=== PATIENT | female | born 1960 | race Caucasian/White ===

== ENCOUNTER → 2016-07-25 | Outpatient (CLI) | payer OTHER ==
--- NOTE | 2016-07-25 09:16 | REP ---
Renal ultrasound: There are no comparisons. The kidneys are normal size. The right kidney measures 10.7 by 4.8 x 5.2 cm. Left kidney measures 10.3 x 5.4 x 5.5 cm. Renal cortex is mildly hyperechoic bilaterally. There are bilateral linear echogenic foci which could be calcified atheroma in the renal vessels versus nonobstructing renal calculi. There is no hydronephrosis, cyst or mass on the right on the left. Bladder ultrasound: The bladder is incompletely distended and cannot be further evaluated. We are unable to evaluate for ureteral jets. However, there is no hydronephrosis. Impression: There are linear calcifications bilaterally, likely vascular calcified atheroma although nonobstructive renal calculi cannot be entirely discounted. Otherwise, negative bilateral renal ultrasound. Signed by [place] Goldsmith MD 07/25/2016 09:08 A
== END ==
LOC: M RAD 07:18
PROVIDERS: ATTEND Internal Medicine Nephrology
DX: N18.3 Chronic kidney disease, stage 3 (moderate) (principal); E11.22 Type 2 diabetes mellitus with diabetic chronic kidney disease; R93.429 Abnormal radiologic findings on diagnostic imaging of unspecified kidney

== ENCOUNTER → 2016-10-13 | Outpatient (REF) | payer OTHER ==
[2016-10-13 14:36] LABS: PERCENT SATURATION 12.9 % (13.2-37.4)
== END ==
LOC: M LAB REF 13:13
PROVIDERS: ATTEND Internal Medicine Nephrology
DX: D64.9 Anemia, unspecified (principal)

== ENCOUNTER → 2018-02-26 | Outpatient (CLI) | payer OTHER | LOC: M WHC 07:57 | DX: Z12.31 Encounter for screening mammogram for malignant neoplasm of breast (principal); Z78.0 Asymptomatic menopausal state; Z92.89 Personal history of other medical treatment; Z80.3 Family history of malignant neoplasm of breast | CPT/HCPCS: 77067 ==

== ENCOUNTER → 2019-04-24 | Outpatient (CLI) | payer OTHER ==
--- NOTE | 2019-04-24 09:44 | REPMRS ---
Patient History The patient states she has not had a clinical breast exam in over a year. Family history of colorectal cancer at age 83 in father, breast cancer at age 70 in paternal grandmother, colorectal cancer at age 50 or over in maternal grandfather, ovarian cancer at age 60 in maternal aunt. No Hormone Replacement Therapy Digital Woman Screen Mammo: April 24, 2019 - Exam #: [id number] Bilateral CC and MLO view(s) were taken. Technologist: Vikki Sierra, Technologist Prior study comparison: February 26, 2018, bilateral digital woman screen mammo performed at [facility]. January 2017, bilateral digital mammo screening bilat, performed at [facility]. FINDINGS: There are scattered fibroglandular densities. There has been no change in the appearance of the mammogram from the prior studies. There is a mild amount of scattered fibroglandular density which is fairly symmetric. There is no interval development of dominant mass, architectural distortion, or grouped microcalcification suggestive of malignancy. 3-D tomosynthesis shows no additional findings. Assessment: BI-RADS/ACR category 1 mammogram. Negative Mammogram. Recommendation Routine screening mammogram of both breasts in 1 year (for women over age 40). This patient's Lifetime Breast Cancer Risk is estimated at 15.3 %. This mammogram was interpreted with the aid of an FDA-approved computer-aided dectection system. Electronically Signed By: Paul Vasquez MD 04/24/19 0944
== END ==
LOC: M WHC 07:13
PROVIDERS: ATTEND Internal Medicine
DX: Z12.31 Encounter for screening mammogram for malignant neoplasm of breast (principal)

== ENCOUNTER → 2019-06-25 | Outpatient (REF) | payer OTHER ==
[2019-06-26 12:37] LABS: MAU/CREAT RATIO 136.5 MCG/MG (0.0-30.0)
== END ==
LOC: M LAB REF 11:28
PROVIDERS: ATTEND Nurse Practitioner Family
DX: E11.65 Type 2 diabetes mellitus with hyperglycemia (principal)

== ENCOUNTER → 2021-01-20 | Outpatient (REF) | payer OTHER | LOC: M LAB REF 17:21 | PROVIDERS: ATTEND Internal Medicine Nephrology | DX: N18.31 Chronic kidney disease, stage 3a (principal) ==

== ENCOUNTER → 2021-03-28 | Outpatient (CLI) | payer OTHER ==
[~2021-03-28] MED LIST: BYDU2INJ7; CALC1TAB PO; ECOT81TA5 PO; FARX1TAB3; FENO160T10; HUMA100I5; LOSA100T50 PO; METF500T13; ROSU20TA5; SERT50TA29; TOUJ300I2; VITA400T26 PO
== END ==
LOC: M LABSMTC 11:05
PROVIDERS: ATTEND Anesthesiology
DX: Z01.818 Encounter for other preprocedural examination (principal); Z11.52 Encounter for screening for COVID-19

== ENCOUNTER 2021-04-01 07:41 | Day surgery (SDC) | payer OTHER ==
[~2021-04-01] VITALS: Ht 162.6 cm; Wt 99.7 kg
[~2021-04-01 07:41] MED LIST changes: +NS 1,000 ML IV ONE
--- OUTSIDE RECORDS SUMMARY | 2021-04-01 07:47 | CCD | Continuity of Care Document ---
Author Author Ayana MUNOZ M.D. Organization Unknown Address [address] [address] Phone [phone] Care Team Providers Care Airplane Rental Clerk Name Role Phone Filippo Kumar M.D. AUTM [phone] Aretha Pritchard M.D. AUTM [phone] Problems Active Problems Provider Date Type 2 diabetes mellitus Ricco Pritchard D.O., FAAFP Onset: 03/24/2002 Benign essential hypertension Tonya Pardo, RPA Onset: 03/24/2002 Mixed hyperlipidemia Tonya Pardo RPA Onset: 2 Obesity Luis Angel Miguel M.D. Onset: 03/02/2005 Hyperlipidemia Jennifer Moise, SOFTWARE DESIGNER-C Onset: Social History Type Date Description Comments Sex Unknown ETOH Use alcohol use: never used Tobacco Use Start: Unknown Patient has never smoked Recreational Drug Use Denies Drug Use Allergies and adverse reactions Active Allergies Criticality Reaction | Severity Comments Date Sulfa Drugs Unable to assess criticality 02/17/2002 Amoxicillin Unable to assess criticality rash, swelling 01/19/2011 Medications Active Medications SIG Qnty Indications Ordering Provide r Date Freestyle Lancets Misc 25g use as directed to test glucose 3-4 times a day (e 11.65) 350units Chan Munoz M.D. 10/06/2020 Freestyle Insulinx Test Strips Test Blood Sugar Three To Four Times A Day 400units Chan Munoz M.D. 05/27/2020 Shingrix 50mcg/0.5ML Suspension Re c as directed 1units Chan Munoz M.D. 01/23/20 20 Rosuvastatin Calcium 20mg Tablets 1 by mouth every day 90tabs Chan Munoz M.D. 03/10/20 19 Zoloft 50mg Tablets 1 by mouth every day 90tabs Chan Munoz M.D. 08/26/2013 BD Pen Needle/Mini/Ultrafine/31G X 3/16" 31G X 5 mm Misc for use three times a day with humalog pen and victoza dx: e 11.65 300units Chan Munoz M.D. 11/07/19 13 Asa 81mg Take One Tablet Dary Sundeep Miguel. MVic 01/04/2004 Calcium 500 +D3 [id number] Tab lets 1 po bid Unknown Vitamin E 400Unit Capsules 1 by mouth every day Unknown Fenofibrate 160mg Tablets 1 by mouth every day 90tabs Chan Munoz M.D. 00 Metformin HCL 500mg Tablets Take One Tablet By Mouth Twice A Day Maximum Daily Dose = 2 Tablets 180tabs Chan Munoz M.D. Losartan Potassium 100mg Tablets take half tab every day Unknown Humalog 100Unit/ML Solution 10 units morning, 12 units noon and 16 units eveing Aretha Pritchard M.D. [place] Solostar 300U nit/ML Solution Pen-Inject inject 80 units subcutaneously qd Brandy Pritchard M.D. Bydureon Bcise 2mg/0.85ML Auij inj every week Aretha Pritchard M.D. Farxiga 10mg Tablets 1 by mouth every day Aretha Pritchard M.D. Medications Administered in Office Medication SIG Qnty Indications Ordering Provider Date Injection (SC)/(Im) Injection Yi Anderson D.O. 04/07/2010 Injection (SC)/(Im) Injection Luis Angel Miguel M.D. 03/02/2005 Injection (SC)/(Im) Injection Luis Angel Miguel M.D. 04/14/2004 Immunizations CPT Code Status Date Vaccine Lot # [id number] Given 01/23/2020 Influenza Virus Vaccine, Quadrivalent, Slit Virus, Im Use 3Y & Up [id number] 40071 Given 02/04/2014 Influenza Virus Vac. Split Virus Individuals 3 Years And Above [id number] 74543 Given 01/29/2012 Pneumococcal Immunization [id number] 85942 Given 01/25/2011 Influenza Virus Vac. Split Virus Individuals 3 Years And Above [id number] 93412 Given 03/07/2007 Influenza Virus Vac. Split Virus Individuals 3 Years And Above 03837 Given 03/07/2006 Influenza Virus Vac. Split Virus Individuals 3 Years And Above 77584 Given 03/02/2005 Influenza Virus Vac. Split Virus Individuals 3 Years And Above 83972 Given 04/14/2004 Influenza Virus Vac. Split Virus Individuals 3 Years And Above 78912 Given 03/02/2003 Pneumococcal Immunization [id number] Refused 03/10/2019 Influenza Virus Vaccine, Quadrivalent, Slit Virus, Im Use 3Y & Up [id number] Refused 02/27/2017 Influenza Virus Vaccine, Quadrivalent, Slit Virus, Im Use 3Y & Up Vital Signs Date Vital Result Comment 11/16/2020 1:21pm BP Systolic 120 mmHg BP Diastolic 76 mmHg Body Temperature 97.3 F Heart Rate 78 /min Respiratory Rate 16 /min Height 64 inches 5'4" Weight 220.00 lb [place] Body Weight 120 lb BMI (Body Mass Index) 37.8 kg/m2 O2 % BldC Oximetry 98 % 07/26/2020 10:50am BP Systolic 128 mmHg BP Diastolic 72 mmHg Body Temperature 97.2 F Heart Rate 104 /min Respiratory Rate 16 /min Height 64 inches 5'4" Weight 219.00 lb [place] Body Weight 120 lb BMI (Body Mass Index) 37.6 kg/m2 O2 % BldC Oximetry 98 % Results Test Acquired Date Facility Test Result H/L Range Note Coronavirus 2019 Nasopharygeal 03/28/2021 [facility] (Interface) [phone] Coronavirus 2019 Nasopharygeal ASSAY INFORMATIO <SEE N OTE> 1 Laboratory test finding 11/09/2020 [facility] Hemoglobin A1c 6.8 % High 4.50-6.20 CBC 11/09/2020 [facility] WBC 7.3 10E3/uL 4.1 - 10.9 2 RBC 5.27 10E6/uL 4.20 - 6.30 HGB 14.7 g/dL 12.0 - 18.0 HCT 42.8 % 37.0 - 51.0 MCV 81.2 fL 80.0 - 97.0 MCH 27.9 pg 26.0 - 32.0 MCHC 34.3 g/dL 31.0 - 36.0 PLT 121 10E3/uL Low 140 - 440 RDW-CV 13.4 % 11.5 - 14.5 Lym% 6.8 % Low 10.0 - 58.5 Neut% 84.8 % 37.0 - 92.0 MXD% 8.4 % 0.1 - 24.0 Lym# 0.5 10E3/uL Low 0.6 - 4.1 Neut# 6.2 % 2.0 - 7.8 MXD# 0.6 10E3/uL 0.0 - 1.8 MPV 10.2 fL 9.0 - 13.0 CMP 11/09/2020 [facility] Glu 131 mg/dL High 70 - 110 BUN 17 mg/dL 8 - 23 Creat 1.1 mg/dL High 0.5 - 1.0 BUN/Creatinine Ratio 16.3 CALC Na 137 mmol/L 136 - 145 K 4.3 mmol/L 3.5 - 5.1 CL 105.2 mmol/L 98.0 - 107.0 Co2 23.5 mmol/L 22.0 - 29.0 CA 8.6 mg/dL 8.6 - 10.2 TP 6.0 g/dL Low 6.6 - 8.7 Alb 4.2 g/dL 3.4 - 4.8 A/G Ratio 2.3 CALC Globulin 1.8 CALC Alp 62.3 U/L 35 - 129 Alt (SGPT) 14 U/L 0 - 41 Ast (Sgot) 18 U/L 0 - 40 Tbili 0.41 mg/dL 0.0 - 1.2 Osmolality-Calculated 276.4 CALC Anion Gap 12 mmol/L eGFR 63 # Calc 3 eGFR Non-Afr. Jamaican 55 # Calc 4 Lipid Panel 11/09/2020 [facility] Chol 139 mg/dL 0 - 200 Trig 162 mg/dL 40 - 200 HDL 32 mg/dL Low 45 - 65 LDL_C 75 Calc 75 - 129 Cho/HDL Ratio 4.4 CALC 1 ASSAY INFORMATION: Real Time RT-PCR NOTE: The COVID-19 assay has been cleared by the U.S. Food and Drug Administration under the Emergency Use Authorization (EUA). [facility] and [facility] are designated as high complexity laboratories by the Clinical Laboratory Improvement Amendments of 1988(CLIA) and are qualified to perform this test. Not Detected 2 NORMAL RANGES Age WBC RBC HGB HCT MCV PLT Adult M 4.1-10.9 4.20-6.30 12.0-18.0 37.0-51.0 80-97 140-440 Adult F 4.1-10.9 4.04-5.48 12.0-18.0 37.0-51.0 80-97 140-440 0 -1 Yr 5.0-20.0 3.9-5.9 15-18 MV: 44 MV: 91 MV: 277 2-9 Yr. 6.0-17.0 3.8-5.4 11-13 MV: 37 MV: 78 MV: 300 10 Yrs. 5.0-13.0 3.8-5.4 12-15 MV: 39 MV: 80 MV: 250 NOTE: * FOR ADULT BLACK MALES AND FEMALES, NORMAL WBC IS 2.9-7.7 K/ML * FOR ADULT BLACK MALES AND FEMALES, NORMAL RBC,HGB, AND HCT IS 5% LESS SOURCE FOR DATA: 10-20 Media 1800 OPERATION MANUAL( AUTOMATED BLOOD COUNTS AND DIFF.) APPENDIX B-3 CHRONIC KIDNEY DISEASE STAGING PER NKF: MALE GFR INTERPRETATION: 20-49 YRS: >60 mL/min Normal 50-59 YRS: >56 mL/min Normal 60-69 YRS: >49 mL/min Normal 70-79 YRS: >42 mL/min Normal 80 and above >35 mL/min Normal FEMALE GRF INTERPRETATION: 20-39 YRS: >60 mL/min Normal 40-49 YRS: >58 mL/min Normal 50-59 YRS: >51 mL/min Normal 60-69 YRS: >45 mL/min Normal 70-79 YRS: >39 mL/min Normal 80 and above >32 mL/min NormalCLASSIFICATION CHOLESTEROL FOR ADULTS CHILDREN/ADOLESCENTS* DESIRABLE: <200 MG/DL <170 MG/DL BORDER-LINE HIGH RISK: 200-239 MG/DL 170-199 MG/DL HIGH RISK: >240 MG/DL >200 MG/DL CLASS. FOR PRIMARY LDL CHOL PREVENTION: LDL CHOL-CHILD/ADOLESCENTS* DESIRABLE: <130 MG/DL <110 MG/DL BORDERLINE-HIGH RISK: 130-159 MG/DL 110-129 MG/DL HIGH RISK: >160 MG/DL >130 MG/DL *CHILDREN AND ADOLESCENTS REPRESENTS INDIVIDUALA AGED 2-19 YEARS EXCLUSIVE. 3 CKD-EPI 4 CKD-EPI Procedures Date Code Description Status 11/16/2020 34398 Office/Outpatient Established Mo d MDM 30-39 Min Completed 04/24/2019 [id number] Mammogram Completed 02/26/2018 [id number] Mammogram Completed 08/30/2015 [id number] Mammogram Completed Medical Devices Description No Information Available Encounters Type Date Location Provider Dx Diagnosis Office Visit 11/16/2020 11:00a [facility] Chan Munoz M. D. E11.65 Type 2 diabetes mellitus with hyperglycemia E78.5 Hyperlipidemia, unspecified I10 Essential (primary) hyperten nova N18.30 Chronic kidney disease, stag e 3 unspecified Assessments Date Code Description Provider 11/16/2020 E11.65 Type 2 diabetes mellitus with hy perglycemia Chan Munoz M.D. 11/16/2020 E78.5 Hyperlipidemia, unspecified Mitc helChan tello M.D. 11/16/2020 I10 Essential (primary) hypertension Chan Munoz M.D. 11/16/2020 N18.30 Chronic kidney disease, stage 3 unspecified Chan Munoz M.D. 11/09/2020 E11.65 Type 2 diabetes mellitus with hy perglycemia Ricco Pritchard D.O., [facility] 11/09/2020 E11.65 Type 2 diabetes mellitus with hy perglycemia Laboratory [facility] 11/09/2020 E78.5 Hyperlipidemia, unspecified Gideon Pritchard D.O., [facility] 11/09/2020 E78.5 Hyperlipidemia, unspecified Labo ratory [facility] Plan of Treatment Future Appointment(s):* 05/13/2021 9:00 am - [facility] * 05/20/2021 10:00 am - Chan Munoz M.D. at [facility] 11/23/2008 - Luis Angel Miguel M.D.* 786.50 Pain Chest Unspecified* Follow up:* In 3 months. * 780.50 Sleep Disturbance Unspecified * 250.00 Diabetes Mellitus Adult* Comments:* Discussed blood glucose monitering. Recommend fasting checks 3-5/week and 2 hr pp 1-2/week. Reviewed dietary compliance. * 401.1 Hypertension Benign* Comments:* Reviewed lo salt diet, exercise, and weight loss. Discussed home BP monitering, goal BP < 135/ < 85. * 272.2 Hyperlipidemia Mixed * All * Follow up:* In 3 months, For Routine Health Maintanence. Functional Status Description No Information Available Mental Status Description No Information Available Referrals Description No Information Available
--- OUTSIDE RECORDS SUMMARY | 2021-04-01 07:48 | CCD | Continuity of Care Document ---
Author Author Ayana OLMOS NP Organization Unknown Address [address] [place] [address] Phone [phone] Care Team Providers Care Csr Technician Name Role Phone Chan Munoz MD AUTM [phone] Funmi Hair MD AUTM [phone] Problems Active Problems Provider Date Pure hypercholesterolemia Kim Olmos NP Onset: 02/22 Essential hypertension Kim Olmos NP Onset: 019 Social History Type Date Description Comments Sex Unknown Tobacco Use Start: Unknown Never Smoked Cigarettes Smoking Status Reviewed: 01/20/21 Never Smoked Cigarettes ETOH Use Never used alcohol Allergies and adverse reactions Active Allergies Criticality Reaction | Severity Comments Date sulfa drugs Unable to assess criticality 03/13/2019 Amoxicillin Unable to assess criticality 03/13/2019 Medications Active Medications SIG Qnty Indications Ordering Provide r Date Farxiga 10mg Tablets 1 by mouth every day 90tabs E11.65 Kim Olmos NP 11/04/2019 Pen [place] 31G X 5 mm Misc use as directed 4 times a day 400units E11.65 Aretha Pritchard MD 11/03 N18.3 Bydureon Bcise 2mg/0.85ML Auij use as directed weekly 10.2ml E11.65 Aretha Pritchard MD 04/30/2019 Toujeo Max Solostar 300Unit/ML Solution Pen-Inject 70 units every morning 27units E11.65 Kim Olmos NP 03/14/2019 Humalog Kwikpen 100U nit/ML Solution Pen-Inject use as directed three times daily- 10--12--16 units 60units E11.65 Kim Olmos NP 03/13/2019 Sertraline HCL 50mg Tablets 1 po qd Unknown Calcium 600+D3 [id number] Tabl ets 1 po qd Unknown Vitamin E 400Unit Capsules 1 po qd Unknown Losartan Potassium 50mg Tablets 1 po qd Unknown Aspirin [address] 1 po qd Unknown Fenofibrate 160mg Tablets 1 p o qd Unknown Rosuvastatin Calcium 20mg Tablets 1 po qd Unknown Metformin HCL 500mg Tablets 1 by mouth twice a day 180tabs Kim Olmos NP 0 Immunizations Description No Information Available Vital Signs Date Vital Result Comment 01/20/2021 1:10pm BP Systolic 142 mmHg BP Diastolic 80 mmHg Heart Rate 72 /min Height 63.9 inches 5'3.90" Weight 218.12 lb BMI (Body Mass Index) 37.6 kg/m2 07/22/2020 8:58am BP Systolic 140 mmHg BP Diastolic 78 mmHg Heart Rate 84 /min Body Temperature 95.9 F Height 63.9 inches 5'3.90" Weight 218.00 lb BMI (Body Mass Index) 37.5 kg/m2 O2 % BldC Oximetry 98 % Results Description No Information Available Procedures Date Code Description Status 01/20/2021 29863 Office/Outpatient Established Mo d MDM 30-39 Min Completed 07/22/2020 [id number] Diabetic Foot Exam Completed Medical Devices Description No Information Available Encounters Type Date Location Provider Dx Diagnosis Office Visit 01/20/2021 1:15p DR. Aretha Olmos, N P E11.65 Type 2 diabetes mellitus with hyperglycemia E78.00 Pure hypercholesterolemia, u nspecified I10 Essential (primary) hyperten nova N18.30 Chronic kidney disease, stag e 3 unspecified Assessments Date Code Description Provider 01/20/2021 E11.65 Type 2 diabetes mellitus with hy perglycemia Kim Olmos NP 01/20/2021 E78.00 Pure hypercholesterolemia, unspe cified Kim Olmos NP 01/20/2021 I10 Essential (primary) hypertension Kim Olmos NP 01/20/2021 N18.30 Chronic kidney disease, stage 3 unspecified Kim Olmos NP Plan of Treatment Future Appointment(s):* 07/26/2021 10:30 am - Kim Olmos NP at DR. Aretha Pritchard 01/20/2021 - Kim Olmos NP* E11.65 Type 2 diabetes mellitus with hyperglycemia* Comments:* 11/09/20- out of office A1c = 6.8% (6.5 %, 5.7%, 7.8%, 8% 8.8%, 8.8%, 8.9%, 8.6%, 8%, 8.8%) Meter downloaded- fasting- 110- 198, Dinner- 59-142 Has lost 0 lbs since last visit- joined Weight WatchersCurrent medication: Metformin 500 mg BID, Bydureon 2 mg, Toujeo max- 70 units qam, Humalog 10-12-16 units- 15 mins before meals, Farxiga 10 mg daily. (Tried Invokana- stopped due to acute renal failure. We do not have the records of when this was started and how high her creatinine conor. She verbally reports that things have normalized. )Has been able to further decrease ToujeoWill continue same. RTO 6 months * Follow up:* RTO July JL/CBF * E78.00 Pure hypercholesterolemia, unspecified* Comments:* Goal for LDL <100. On Fenofibrate and CrestorLabs done 04/30/20- chol= 129, Trig= 170, HDL= 32, LDL= 63 Labs done 11/09/20- chol= 139, Trig= 162, HDL= 32, LDL= 75AST/ALT= 18/14 * I10 Essential (primary) hypertension* Comments:* On ARB. BP 142/80On Losartan 50mg po qd. * N18.30 Chronic kidney disease, stage 3 unspecified* Comments:* Seen by Dr. Hair 01/20/21. Per pt, ok to continue Farxiga. Functional Status Description No Information Available Mental Status Description No Information Available Referrals Description No Information Available
--- OUTSIDE RECORDS SUMMARY | 2021-04-01 07:48 | CCD | Continuity of Care Document ---
Author Author Ayana OLMOS NP Organization Unknown Address [address] [place] [address] Phone [phone] Care Team Providers Care Cmv Driver Name Role Phone Chan Munoz MD AUTM [phone] Funmi Hair MD AUTM [phone] Problems Active Problems Provider Date Pure hypercholesterolemia Kim Olmos NP Onset: 02/22 Essential hypertension Kim Olmos NP Onset: 019 Social History Type Date Description Comments Sex Unknown Tobacco Use Start: Unknown Never Smoked Cigarettes Smoking Status Reviewed: 01/20/21 Never Smoked Cigarettes ETOH Use Never used alcohol Allergies, Adverse Reactions, Alerts Active Allergies Criticality Reaction | Severity Comments Date sulfa drugs Unable to assess criticality 03/13/2019 Amoxicillin Unable to assess criticality 03/13/2019 Medications Active Medications SIG Qnty Indications Ordering Provide r Date Farxiga 10mg Tablets 1 by mouth every day 90tabs E11.65 Kim Olmos NP 11/04/2019 Pen [place] 31G X 5 mm Misc use as [...] times daily- 10--12--16 units 60units E11.65 Kim Olmos, JESS 03/13/2019 Sertraline HCL 50mg Tablets 1 po qd Unknown Calcium 600+D3 [id number] Tabl ets 1 po qd Unknown Vitamin E 400Unit Capsules 1 po qd Unknown Losartan Potassium 50mg Tablets 1 po qd Unknown Aspirin [address] 1 po qd Unknown Fenofibrate 160mg Tablets 1 p o qd Unknown Rosuvastatin Calcium 20mg Tablets 1 po qd Unknown Metformin HCL 500mg Tablets 1 by mouth twice a day 180tabs Kim Olmos, JESS 0 Immunizations Description No Information Available Vital [...] Date Facility Test Result H/L Range Note Laboratory test finding 07/22/2020 In House Glucose 173 Hemoglobin A1c 6.5 Procedures Date Code Description Status 01/20/2021 69084 Office/Outpatient Established Mo d MDM 30-39 Min Completed 07/22/2020 08658 Office/Outpatient Established Mo d MDM 30-39 Min Completed 07/22/2020 [id number] Diabetic Foot Exam Completed Medical Devices Description No Information Available Encounters Type Date Location Provider Dx Diagnosis Office Visit 01/20/2021 1:15p DR. Aretha Olmos, N P E11.65 Type 2 diabetes mellitus with hyperglycemia E78.00 Pure hypercholesterolemia, u nspecified I10 Essential (primary) hyperten nova N18.30 Chronic kidney disease, stag e 3 unspecified Office Visit 07/22/2020 9:00a DR. Aretha Olmos, N P E11.65 Type 2 diabetes mellitus with hyperglycemia E78.00 Pure hypercholesterolemia, u nspecified I10 Essential (primary) hyperten nova N18.30 Chronic kidney disease, stag e 3 unspecified Z01.89 Encounter for other specifie d special examinations Assessments Date Code Description Provider 01/20/2021 E11.65 Type 2 diabetes mellitus with hy perglycemia Kim Olmos, CABLE SYSTEMS INSTALLER 01/20/2021 E78.00 Pure hypercholesterolemia, unspe cified Kim Olmos, CABLE SYSTEMS INSTALLER 01/20/2021 I10 Essential (primary) hypertension Kim Olmos, CABLE SYSTEMS INSTALLER 01/20/2021 N18.30 Chronic kidney disease, stage 3 unspecified Kim Olmos, CABLE SYSTEMS INSTALLER 07/22/2020 E11.65 Type 2 diabetes mellitus with hy perglycemia Kim Olmos, CABLE SYSTEMS INSTALLER 07/22/2020 E78.00 Pure hypercholesterolemia, unspe cified Kim Olmos, CABLE SYSTEMS INSTALLER 07/22/2020 I10 Essential (primary) hypertension Kim Olmos, CABLE SYSTEMS INSTALLER 07/22/2020 N18.30 Chronic kidney disease, stage 3 unspecified Kim Olmos, CABLE SYSTEMS INSTALLER 07/22/2020 Z01.89 Encounter for other specified sp ecial examinations Kim Olmos NP Plan of Treatment Future [...]
--- OUTSIDE RECORDS SUMMARY | 2021-04-01 07:48 | CCD ---
Author Author [facility] Organization [facility] Address Unknown Phone Unavailable Care Team Providers Care Arboriculture Teacher Name Role Phone NICKOLAS, B TONIA TWINE REELING MACHINE OPERATOR Unavailable Unavailable NICKOLAS, B TONIA TWINE REELING MACHINE OPERATOR Unavailable Unavailable NICKOLAS, B TONIA TWINE REELING MACHINE OPERATOR Unavailable Unavailable NICKOLAS, B TONIA TWINE REELING MACHINE OPERATOR Unavailable Unavailable NICKOLAS, B TONIA TWINE REELING MACHINE OPERATOR Unavailable Unavailable NICKOLAS, B TONIA TWINE REELING MACHINE OPERATOR Unavailable Unavailable NICKOLAS, B TONIA TWINE REELING MACHINE OPERATOR Unavailable Unavailable NICKOLAS, B TONIA TWINE REELING MACHINE OPERATOR Unavailable Unavailable NICKOLAS, B TONIA TWINE REELING MACHINE OPERATOR Unavailable Unavailable NICKOLAS, B TONIA TWINE REELING MACHINE OPERATOR Unavailable Unavailable NICKOLAS, B TONIA TWINE REELING MACHINE OPERATOR Unavailable Unavailable NICKOLAS, B TONIA TWINE REELING MACHINE OPERATOR Unavailable Unavailable NICKOLAS, B TONIA TWINE REELING MACHINE OPERATOR Unavailable Unavailable NICKOLAS, B TONIA TWINE REELING MACHINE OPERATOR Unavailable Unavailable NICKOLAS, B TONIA TWINE REELING MACHINE OPERATOR Unavailable Unavailable NICKOLAS, B TONIA TWINE REELING MACHINE OPERATOR Unavailable Unavailable NICKOLAS, B TONIA TWINE REELING MACHINE OPERATOR Unavailable Unavailable NICKOLAS, B TONIA TWINE REELING MACHINE OPERATOR Unavailable Unavailable NICKOLAS, B TONIA TWINE REELING MACHINE OPERATOR Unavailable Unavailable NICKOLAS, B TONIA TWINE REELING MACHINE OPERATOR Unavailable Unavailable NICKOLAS, B TONIA TWINE REELING MACHINE OPERATOR Unavailable Unavailable NICKOLAS, B TONIA TWINE REELING MACHINE OPERATOR Unavailable Unavailable NICKOLAS, B TONIA TWINE REELING MACHINE OPERATOR Unavailable Unavailable NICKOLAS, B TONIA TWINE REELING MACHINE OPERATOR Unavailable Unavailable NICKOLAS, B TONIA TWINE REELING MACHINE OPERATOR Unavailable Unavailable NICKOLAS, B TONIA TWINE REELING MACHINE OPERATOR Unavailable Unavailable NICKOLAS, B TONIA TWINE REELING MACHINE OPERATOR Unavailable Unavailable NICKOLAS, B TONIA TWINE REELING MACHINE OPERATOR Unavailable Unavailable NICKOLAS, B TONIA TWINE REELING MACHINE OPERATOR Unavailable Unavailable NICKOLAS, B TONIA TWINE REELING MACHINE OPERATOR Unavailable Unavailable NICKOLAS, B TONIA TWINE REELING MACHINE OPERATOR Unavailable Unavailable NICKOLAS, B TONIA TWINE REELING MACHINE OPERATOR Unavailable Unavailable NICKOLAS, B TONIA TWINE REELING MACHINE OPERATOR Unavailable Unavailable NICKOLAS, B TONIA TWINE REELING MACHINE OPERATOR Unavailable Unavailable NICKOLAS, B TONIA TWINE REELING MACHINE OPERATOR Unavailable Unavailable NICKOLAS, B TONIA TWINE REELING MACHINE OPERATOR Unavailable Unavailable NICKOLAS, B TONIA TWINE REELING MACHINE OPERATOR Unavailable Unavailable NICKOLAS, B TONIA TWINE REELING MACHINE OPERATOR Unavailable Unavailable NICKOLAS, B TONIA TWINE REELING MACHINE OPERATOR Unavailable Unavailable NICKOLAS, B TONIA TWINE REELING MACHINE OPERATOR Unavailable Unavailable NICKOLAS, B TONIA TWINE REELING MACHINE OPERATOR Unavailable Unavailable NICKOLAS, B TONIA TWINE REELING MACHINE OPERATOR Unavailable Unavailable NICKOLAS, B TONIA TWINE REELING MACHINE OPERATOR Unavailable Unavailable NICKOLAS, B TONIA TWINE REELING MACHINE OPERATOR Unavailable Unavailable NICKOLAS, B TONIA TWINE REELING MACHINE OPERATOR Unavailable Unavailable NICKOLAS, B TONIA TWINE REELING MACHINE OPERATOR Unavailable Unavailable NICKOLAS, B TONIA TWINE REELING MACHINE OPERATOR Unavailable Unavailable NICKOLAS, B TONIA TWINE REELING MACHINE OPERATOR Unavailable Unavailable NICKOLAS, B TONIA TWINE REELING MACHINE OPERATOR Unavailable Unavailable NICKOLAS, B TONIA TWINE REELING MACHINE OPERATOR Unavailable Unavailable NICKOLAS, B TONIA TWINE REELING MACHINE OPERATOR Unavailable Unavailable NICKOLAS, B TONIA TWINE REELING MACHINE OPERATOR Unavailable Unavailable NICKOLAS, B TONIA TWINE REELING MACHINE OPERATOR Unavailable Unavailable NICKOLAS, B TONIA TWINE REELING MACHINE OPERATOR Unavailable Unavailable NICKOLAS, B TONIA TWINE REELING MACHINE OPERATOR Unavailable Unavailable NICKOLAS, B TONIA TWINE REELING MACHINE OPERATOR Unavailable Unavailable NICKOLAS, B TONIA TWINE REELING MACHINE OPERATOR Unavailable Unavailable NICKOLAS, B TONIA TWINE REELING MACHINE OPERATOR Unavailable Unavailable NICKOLAS, B TONIA TWINE REELING MACHINE OPERATOR Unavailable Unavailable NICKOLAS, B TONIA TWINE REELING MACHINE OPERATOR Unavailable Unavailable NICKOLAS, B TONIA TWINE REELING MACHINE OPERATOR Unavailable Unavailable NICKOLAS, B TONIA TWINE REELING MACHINE OPERATOR Unavailable Unavailable Sammy NEWMAN MD Unavailable Unavailable Sammy NEWMAN MD Unavailable Unavailable Sammy NEWMAN MD Unavailable Unavailable Sammy NEWMAN MD Unavailable Unavailable Sammy NEWMAN MD Unavailable Unavailable Sammy NEWMAN MD Unavailable Unavailable Sammy NEWMAN MD Unavailable Unavailable Sammy NEWMAN MD Unavailable Unavailable Sammy NEWMAN MD Unavailable Unavailable Sammy NEWMAN MD Unavailable Unavailable Sammy NEWMAN MD Unavailable Unavailable Sammy NEWMAN MD Unavailable Unavailable Sammy NEWMAN MD Unavailable Unavailable Sammy NEWMAN MD Unavailable Unavailable Sammy NEWMAN MD Unavailable Unavailable Sammy NEWMAN MD Unavailable Unavailable Sammy NEWMAN MD Unavailable Unavailable Sammy NEWMAN MD Unavailable Unavailable Sammy NEWMAN MD Unavailable Unavailable TRENT, H PHILLIP MD Unavailable Unavailable TRENT, H PHILLIP MD Unavailable Unavailable TRENT, H PHILLIP MD Unavailable Unavailable TRENT, H PHILLIP MD Unavailable Unavailable TRENT, H PHILLIP MD Unavailable Unavailable TRENT, H PHILLIP MD Unavailable Unavailable TRENT, H PHILLIP MD Unavailable Unavailable TRENT, H PHILLIP MD Unavailable Unavailable TRENT, H PHILLIP MD Unavailable Unavailable TRENT, H PHILLIP MD Unavailable Unavailable TRENT, H PHILLIP MD Unavailable Unavailable TRENT, H PHILLIP MD Unavailable Unavailable TRENT, H PHILLIP MD Unavailable Unavailable TRENT, H PHILLIP MD Unavailable Unavailable TRENT, H PHILLIP MD Unavailable Unavailable TRENT, H PHILLIP MD Unavailable Unavailable TRENT, H PHILLIP MD Unavailable Unavailable TRENT, H PHILLIP MD Unavailable Unavailable TRENT, H PHILLIP MD Unavailable Unavailable TRENT, H PHILLIP MD Unavailable Unavailable TRENT, H PHILLIP MD Unavailable Unavailable TRENT, H PHILLIP MD Unavailable Unavailable TRENT, H PHILLIP MD Unavailable Unavailable TRENT, H PHILLIP MD Unavailable Unavailable TRENT, H PHILLIP MD Unavailable Unavailable TRENT, H PHILLIP MD Unavailable Unavailable TRENT, H PHILLIP MD Unavailable Unavailable TRENT, H PHILLIP MD Unavailable Unavailable TRENT, H PHILLIP MD Unavailable Unavailable TRENT, H PHILLIP MD Unavailable Unavailable TRENT, H PHILLIP MD Unavailable Unavailable TRENT, H PHILLIP MD Unavailable Unavailable TRENT, H PHILLIP MD Unavailable Unavailable TRENT, H PHILLIP MD Unavailable Unavailable TRENT, H PHILLIP MD Unavailable Unavailable TRENT, H PHILLIP MD Unavailable Unavailable TRENT, H PHILLIP MD Unavailable Unavailable TRENT, H PHILLIP MD Unavailable Unavailable TRENT, H PHILLIP MD Unavailable Unavailable TRENT, H PHILLIP MD Unavailable Unavailable TRENT, H PHILLIP MD Unavailable Unavailable TRENT, H PHILLIP MD Unavailable Unavailable TRENT, H PHILLIP MD Unavailable Unavailable TRENT, H PHILLIP MD Unavailable Unavailable TRENT, H PHILLIP MD Unavailable Unavailable TRENT, H PHILLIP MD Unavailable Unavailable TRENT, H PHILLIP MD Unavailable Unavailable TRENT, H PHILLIP MD Unavailable Unavailable TRENT, H PHILLIP MD Unavailable Unavailable TRENT, H PHILLIP MD Unavailable Unavailable TRENT, H PHILLIP MD Unavailable Unavailable TRENT, H PHILLIP MD Unavailable Unavailable TRENT, H PHILLIP MD Unavailable Unavailable TRENT, H PHILLIP MD Unavailable Unavailable TRENT, H PHILLIP MD Unavailable Unavailable TRENT, H PHILLIP MD Unavailable Unavailable TRENT, H PHILLIP MD Unavailable Unavailable TRENT, H PHILLIP MD Unavailable Unavailable TRENT, H PHILLIP MD Unavailable Unavailable TRENT, H PHILLIP MD Unavailable Unavailable Re-disclosure Warning The records that you are about to access may contain information from federally-assisted alcohol or drug abuse programs. If such information is present, then the following federally mandated warning applies: This information has been disclosed to you from records protected by federal confidentiality rules (42 CFR part 2). The federal rules prohibit you from making any further disclosure of this information unless further disclosure is expressly permitted by the written consent of the person to whom it pertains or as otherwise permitted by 42 CFR part 2. A general authorization for the release of medical or other information is NOT sufficient for this purpose. The Federal rules restrict any use of the information to criminally investigate or prosecute any alcohol or drug abuse patient.The records that you are about to access may contain highly sensitive health information, the redisclosure of which is protected by Article 27-F of the [facility] Public Health law. If you continue you may have access to information: Regarding HIV / AIDS; Provided by facilities licensed or operated by the [facility] Office of Mental Health; or Provided by the [facility] Office for People With Developmental Disabilities. If such information is present, then the following [facility] mandated warning applies: This information has been disclosed to you from confidential records which are protected by state law. State law prohibits you from making any further disclosure of this information without the specific written consent of the person to whom it pertains, or as otherwise permitted by law. Any unauthorized further disclosure in violation of state law may result in a fine or alf sentence or both. A general authorization for the release of medical or other information is NOT sufficient authorization for further disc losure. Encounters Encounter Providers Location Date Indications Data Source(s ) Outpatient Attender: TONIA OLMOS NP Physical Therapy 01:15:00 PM EDT [facility] ([facility]) Outpatient Attender: PHILLIP Quintero Office 11:00:00 AM EDT [facility] ([facility] Outpatient Attender: PHILLIP Quintero Office 08/2020 10:20:00 AM EDT [facility] ([facility] Outpatient Attender: TONIA OLMOS NP Physical Therapy 09:00:00 AM EDT [facility] ([facility]) Outpatient Attender: PHILLIP NEWMAN MD [place] Office 10:00:00 AM EST [facility] ([facility] Immunizations Vaccine Date Status Description Data Source(s) COVID-19 VACCINE Moderna 02/21/2021 12:00:00 AM EDT completed [facility] Vaccine Series Complete: YESThis Data wa s Submitted to [facility]. COVID-19 VACCINE Moderna 07/22/2020 12:00:00 AM EDT completed [facility] Vaccine Series Complete: YESThis Data wa s Submitted to [facility]. COVID-19 VACCINE Moderna 06/24/2020 12:00:00 AM EST completed [facility] Vaccine Series Complete: NOThis Data was Submitted to [facility]. VARICELLA-ZOSTER VIRUS GLYCOPROTEIN E,REC/AS01B ADJUVA NT/PF 02/19/2020 12:00:00 AM EDT completed [facility] Medications Medication Brand Name Start Date Product Form Dose Route Admi nistrative Instructions Pharmacy Instructions Status Indications Reaction Description Data Source(s) 100 mcg/0.5 mL 02/21/2021 12:00:00 AM EDT suspension 0 INJECT DIRECTED PER STANDING ORDER INJECT DIRECTED PER STANDING ORDER SOLD: 02/21/2021 [facility] 60 mcg (15 mcg x 4)/0.5 mL 01/25/2021 12:00:00 AM EDT suspen nova 0 DIRECTED IN THE LEFT ARM DIRECTED IN THE LEFT ARM SOLD: 01/25/2021 [facility] POLYETHYLENE GLYCOL 3350 [id number] MG / Pot assium Chloride 2970 MG / Sodium Bicarbonate 6740 MG / Sodium Chloride 5860 MG / sodium sulfate 85798 MG Powder for Oral Solution 236-22.74-6.74 -5.86 gram QIU5165/SOD SULF,BICARB,CL/KCL 01/04/2021 12:00:00 AM EDT recon soln 4000 TAKE DIRECTED BY DOCTOR FOR PREP TAKE DIRECTED BY DOCTOR FOR PREP SOLD: 01/06/2021 [facility] Freestyle Lancets 10/06/2020 12:00:00 AM EDT active [facility] ([facility] Freestyle Insulinx Test 05/27/2020 12:00:00 AM EST active [facility] ([facility] Insurance Providers Payer name Policy type / Coverage type Policy ID Covered alliance party ID Covered alliance party's relationship to coker Policy Coker Plan Information [facility] [id number] SP [id number] [facility] O [id number] S [id number] [facility] [id number] SP [id number] [employer] [id number] SP [id number] P[employer] O [id number] S [id number] [employer] [id number] 0 [id number] [employer] O [id number] S [id number] Problems, Conditions, and Diagnoses Code Display Name Description Problem Type Effective Dates Data Source(s) [id number] Essential hypertension Essential hypertension Problem 12/22/2020 12:00:00 AM EDT [facility] ([facility] ) Surgeries/Procedures Procedure Description Date Indications Data Source(s) OFFICE OUTPATIENT VISIT 25 MINUTES 01/20/2021 12:00:00 AM EDT [facility] ([facility]) OFFICE OUTPATIENT VISIT 25 MINUTES 11/16/2020 12:00:00 AM EDT [facility] ([facility] OFFICE OUTPATIENT VISIT 15 MINUTES 07/26/2020 12:00:00 AM EDT [facility] ([facility] Diabetic Foot Exam 07/22/2020 12:00:00 AM EDT [facility] ([facility]) OFFICE OUTPATIENT VISIT 25 MINUTES 07/22/2020 12:00:00 AM EDT [facility] ([facility]) Results ID Date Data Source [id number] 03/28/2021 10:50:00 AM EST [facility] Name Value Range Interpretation Code Description Data Catherine rce(s) Supporting Document(s) SARS-CoV-2 (COVID-19) RNA [Presence] in Respiratory specimen by ROSSI with probe detection Not Detected [facility] This lab was ordered by [facility] and reported by [facility] ID Date Data Source [id number] 03/28/2021 10:50:00 AM EST [facility] ([facility] Name Value Range Interpretation Code Description Data Catherine rce(s) Supporting Document(s) Laboratory test finding (navigational concept) Laboratory test result [facility] ([facility] ASSAY INFORMATION: Real Time RT-PCR NOTE: The COVID-19 assay has been cleared by the U.S. Food and Drug Administration under the Emergency Use Authorization (EUA). [employer] and [employer] are designated as high complexity laboratories by the Clinical Laboratory Improvement Amendments of 1988(CLIA) and are qualified to perform this test. Not Detected ID Date Data Source [id number] 11/09/2020 08:57:00 AM FABI SIMPSON ([facility] Name Value Range Interpretation Code Description Data Catherine rce(s) Supporting Document(s) Trig 162 mg/dL 40-200 [facility] NORMAL RANGES Age WBC RBC HGB HCT [...] HCT IS 5% LESS SOURCE FOR DATA: 3KeyIt 1800 OPERATION MANUAL( AUTOMATED BLOOD COUNTS AND [...] DESIRABLE: <130 MG/DL <110 MG/DL BORDERLINE-HIGH RISK: 130- 159 MG/DL 110-129 MG/DL HIGH RISK: >160 MG/DL >130 MG/DL *CHILDREN AND ADOLESCENTS REPRESENTS INDIVIDUALA AGED 2-19 YEARS EXCLUSIVE. Chol 139 mg/dL 0-200 [facility] NORMAL RANGES Age WBC RBC HGB HCT [...] HCT IS 5% LESS SOURCE FOR DATA: [employer]KeyIt 1800 OPERATION MANUAL( AUTOMATED BLOOD COUNTS AND [...] DESIRABLE: <130 MG/DL <110 MG/DL BORDERLINE-HIGH RISK: 130- 159 MG/DL 110-129 MG/DL HIGH RISK: >160 MG/DL >130 MG/DL *CHILDREN AND ADOLESCENTS REPRESENTS INDIVIDUALA AGED 2-19 YEARS EXCLUSIVE. Cholesterol in HDL [Mass/volume] in Serum or Plasma 32 mg/dL 45-65 Below low normal [facility] ([facility] ) NORMAL RANGES Age WBC RBC HGB HCT [...] HCT IS 5% LESS SOURCE FOR DATA: [employer]KeyIt 1800 OPERATION MANUAL( AUTOMATED BLOOD COUNTS AND [...] DESIRABLE: <130 MG/DL <110 MG/DL BORDERLINE-HIGH RISK: 130- 159 MG/DL 110-129 MG/DL HIGH RISK: >160 MG/DL >130 MG/DL *CHILDREN AND ADOLESCENTS REPRESENTS INDIVIDUALA AGED 2-19 YEARS EXCLUSIVE. Cho/HDL Ratio 4.4 CALC [facility] ([facility] NORMAL RANGES Age WBC RBC HGB HCT [...] HCT IS 5% LESS SOURCE FOR DATA: [employer] DYN 1800 OPERATION MANUAL( AUTOMATED BLOOD COUNTS AND [...] DESIRABLE: <130 MG/DL <110 MG/DL BORDERLINE-HIGH RISK: 130- 159 MG/DL 110-129 MG/DL HIGH RISK: >160 MG/DL >130 MG/DL *CHILDREN AND ADOLESCENTS REPRESENTS INDIVIDUALA AGED 2-19 YEARS EXCLUSIVE. LDL_C 75 Calc 75-129 [facility] NORMAL RANGES Age WBC RBC HGB HCT [...] HCT IS 5% LESS SOURCE FOR DATA: [employer]KeyIt 1800 OPERATION MANUAL( AUTOMATED BLOOD COUNTS AND [...] DESIRABLE: <130 MG/DL <110 MG/DL BORDERLINE-HIGH RISK: 130- 159 MG/DL 110-129 MG/DL HIGH RISK: >160 MG/DL >130 MG/DL *CHILDREN AND ADOLESCENTS REPRESENTS INDIVIDUALA AGED 2-19 YEARS EXCLUSIVE. ID Date Data Source [id number] 11/09/2020 08:57:00 AM EDT [facility] ([facility] Name Value Range Interpretation Code Description Data Catherine rce(s) Supporting Document(s) BUN 17 mg/dL 8-23 [facility] ([facility] NORMAL RANGES Age WBC RBC HGB HCT [...] HCT IS 5% LESS SOURCE FOR DATA: [employer]KeyIt 1800 OPERATION MANUAL( AUTOMATED BLOOD COUNTS AND [...] DESIRABLE: <130 MG/DL <110 MG/DL BORDERLINE-HIGH RISK: 130- 159 MG/DL 110-129 MG/DL HIGH RISK: >160 MG/DL >130 MG/DL *CHILDREN AND ADOLESCENTS REPRESENTS INDIVIDUALA AGED 2-19 YEARS EXCLUSIVE. Glu 131 mg/dL 70-110 Above high normal [facility] ([facility] NORMAL RANGES Age WBC RBC HGB HCT [...] HCT IS 5% LESS SOURCE FOR DATA: [employer]KeyIt 1800 OPERATION MANUAL( AUTOMATED BLOOD COUNTS AND [...] DESIRABLE: <130 MG/DL <110 MG/DL BORDERLINE-HIGH RISK: 130- 159 MG/DL 110-129 MG/DL HIGH RISK: >160 MG/DL >130 MG/DL *CHILDREN AND ADOLESCENTS REPRESENTS INDIVIDUALA AGED 2-19 YEARS EXCLUSIVE. BUN/Creatinine Ratio 16.3 CALC [facility] ([facility] NORMAL RANGES Age WBC RBC HGB HCT [...] HCT IS 5% LESS SOURCE FOR DATA: 3KeyIt 1800 OPERATION MANUAL( AUTOMATED BLOOD COUNTS AND [...] DESIRABLE: <130 MG/DL <110 MG/DL BORDERLINE-HIGH RISK: 130- 159 MG/DL 110-129 MG/DL HIGH RISK: >160 MG/DL >130 MG/DL *CHILDREN AND ADOLESCENTS REPRESENTS INDIVIDUALA AGED 2-19 YEARS EXCLUSIVE. Creat 1.1 mg/dL 0.5-1.0 Above high normal [facility] ([facility] NORMAL RANGES Age WBC RBC HGB HCT [...] HCT IS 5% LESS SOURCE FOR DATA: 3KeyIt 1800 OPERATION MANUAL( AUTOMATED BLOOD COUNTS AND [...] DESIRABLE: <130 MG/DL <110 MG/DL BORDERLINE-HIGH RISK: 130- 159 MG/DL 110-129 MG/DL HIGH RISK: >160 MG/DL >130 MG/DL *CHILDREN AND ADOLESCENTS REPRESENTS INDIVIDUALA AGED 2-19 YEARS EXCLUSIVE. Na 137 mmol/L 136-145 [facility] ([facility] NORMAL RANGES Age WBC RBC HGB HCT [...] HCT IS 5% LESS SOURCE FOR DATA: [employer] DYN 1800 OPERATION MANUAL( AUTOMATED BLOOD COUNTS AND [...] DESIRABLE: <130 MG/DL <110 MG/DL BORDERLINE-HIGH RISK: 130- 159 MG/DL 110-129 MG/DL HIGH RISK: >160 MG/DL >130 MG/DL *CHILDREN AND ADOLESCENTS REPRESENTS INDIVIDUALA AGED 2-19 YEARS EXCLUSIVE. K 4.3 mmol/L 3.5-5.1 [facility] ([facility] NORMAL RANGES Age WBC RBC HGB HCT [...] HCT IS 5% LESS SOURCE FOR DATA: 3KeyIt 1800 OPERATION MANUAL( AUTOMATED BLOOD COUNTS AND [...] DESIRABLE: <130 MG/DL <110 MG/DL BORDERLINE-HIGH RISK: 130- 159 MG/DL 110-129 MG/DL HIGH RISK: >160 MG/DL >130 MG/DL *CHILDREN AND ADOLESCENTS REPRESENTS INDIVIDUALA AGED 2-19 YEARS EXCLUSIVE. Co2 23.5 mmol/L 22.0-29.0 [facility] ([facility] NORMAL RANGES Age WBC RBC HGB HCT [...] HCT IS 5% LESS SOURCE FOR DATA: 3KeyIt 1800 OPERATION MANUAL( AUTOMATED BLOOD COUNTS AND [...] DESIRABLE: <130 MG/DL <110 MG/DL BORDERLINE-HIGH RISK: 130- 159 MG/DL 110-129 MG/DL HIGH RISK: >160 MG/DL >130 MG/DL *CHILDREN AND ADOLESCENTS REPRESENTS INDIVIDUALA AGED 2-19 YEARS EXCLUSIVE. CL 105.2 mmol/L 98.0-107.0 [facility] ([facility] NORMAL RANGES Age WBC RBC HGB HCT [...] HCT IS 5% LESS SOURCE FOR DATA: 3KeyIt 1800 OPERATION MANUAL( AUTOMATED BLOOD COUNTS AND [...] DESIRABLE: <130 MG/DL <110 MG/DL BORDERLINE-HIGH RISK: 130- 159 MG/DL 110-129 MG/DL HIGH RISK: >160 MG/DL >130 MG/DL *CHILDREN AND ADOLESCENTS REPRESENTS INDIVIDUALA AGED 2-19 YEARS EXCLUSIVE. CA 8.6 mg/dL 8.6-10.2 [facility] ([facility] NORMAL RANGES Age WBC RBC HGB HCT [...] HCT IS 5% LESS SOURCE FOR DATA: 3KeyIt 1800 OPERATION MANUAL( AUTOMATED BLOOD COUNTS AND [...] DESIRABLE: <130 MG/DL <110 MG/DL BORDERLINE-HIGH RISK: 130- 159 MG/DL 110-129 MG/DL HIGH RISK: >160 MG/DL >130 MG/DL *CHILDREN AND ADOLESCENTS REPRESENTS INDIVIDUALA AGED 2-19 YEARS EXCLUSIVE. TP 6.0 g/dL 6.6-8.7 Below low normal [facility] ( [facility] NORMAL RANGES Age WBC RBC HGB HCT [...] HCT IS 5% LESS SOURCE FOR DATA: 3KeyIt 1800 OPERATION MANUAL( AUTOMATED BLOOD COUNTS AND [...] DESIRABLE: <130 MG/DL <110 MG/DL BORDERLINE-HIGH RISK: 130- 159 MG/DL 110-129 MG/DL HIGH RISK: >160 MG/DL >130 MG/DL *CHILDREN AND ADOLESCENTS REPRESENTS INDIVIDUALA AGED 2-19 YEARS EXCLUSIVE. Alb 4.2 g/dL 3.4-4.8 [facility] ([facility] NORMAL RANGES Age WBC RBC HGB HCT [...] HCT IS 5% LESS SOURCE FOR DATA: 3KeyIt 1800 OPERATION MANUAL( AUTOMATED BLOOD COUNTS AND [...] DESIRABLE: <130 MG/DL <110 MG/DL BORDERLINE-HIGH RISK: 130- 159 MG/DL 110-129 MG/DL HIGH RISK: >160 MG/DL >130 MG/DL *CHILDREN AND ADOLESCENTS REPRESENTS INDIVIDUALA AGED 2-19 YEARS EXCLUSIVE. A/G Ratio 2.3 CALC [facility] ([facility] NORMAL RANGES Age WBC RBC HGB HCT [...] HCT IS 5% LESS SOURCE FOR DATA: 3KeyIt 1800 OPERATION MANUAL( AUTOMATED BLOOD COUNTS AND [...] DESIRABLE: <130 MG/DL <110 MG/DL BORDERLINE-HIGH RISK: 130- 159 MG/DL 110-129 MG/DL HIGH RISK: >160 MG/DL >130 MG/DL *CHILDREN AND ADOLESCENTS REPRESENTS INDIVIDUALA AGED 2-19 YEARS EXCLUSIVE. Alp 62.3 U/L 35-129 [facility] ([facility] NORMAL RANGES Age WBC RBC HGB HCT [...] HCT IS 5% LESS SOURCE FOR DATA: AMELIA DYN 1800 OPERATION MANUAL( AUTOMATED BLOOD COUNTS AND [...] DESIRABLE: <130 MG/DL <110 MG/DL BORDERLINE-HIGH RISK: 130- 159 MG/DL 110-129 MG/DL HIGH RISK: >160 MG/DL >130 MG/DL *CHILDREN AND ADOLESCENTS REPRESENTS INDIVIDUALA AGED 2-19 YEARS EXCLUSIVE. Globulin 1.8 CALC [facility] ([facility] NORMAL RANGES Age WBC RBC HGB HCT [...] HCT IS 5% LESS SOURCE FOR DATA: 3KeyIt 1800 OPERATION MANUAL( AUTOMATED BLOOD COUNTS AND [...] DESIRABLE: <130 MG/DL <110 MG/DL BORDERLINE-HIGH RISK: 130- 159 MG/DL 110-129 MG/DL HIGH RISK: >160 MG/DL >130 MG/DL *CHILDREN AND ADOLESCENTS REPRESENTS INDIVIDUALA AGED 2-19 YEARS EXCLUSIVE. Ast (Sgot) 18 U/L 0-40 [facility] ([facility] NORMAL RANGES Age WBC RBC HGB HCT [...] HCT IS 5% LESS SOURCE FOR DATA: 3KeyIt 1800 OPERATION MANUAL( AUTOMATED BLOOD COUNTS AND [...] DESIRABLE: <130 MG/DL <110 MG/DL BORDERLINE-HIGH RISK: 130- 159 MG/DL 110-129 MG/DL HIGH RISK: >160 MG/DL >130 MG/DL *CHILDREN AND ADOLESCENTS REPRESENTS INDIVIDUALA AGED 2-19 YEARS EXCLUSIVE. Alt (SGPT) 14 U/L 0-41 [facility] NORMAL RANGES Age WBC RBC HGB HCT [...] HCT IS 5% LESS SOURCE FOR DATA: 3KeyIt 1800 OPERATION MANUAL( AUTOMATED BLOOD COUNTS AND [...] DESIRABLE: <130 MG/DL <110 MG/DL BORDERLINE-HIGH RISK: 130- 159 MG/DL 110-129 MG/DL HIGH RISK: >160 MG/DL >130 MG/DL *CHILDREN AND ADOLESCENTS REPRESENTS INDIVIDUALA AGED 2-19 YEARS EXCLUSIVE. Tbili 0.41 mg/dL 0.0-1.2 [facility] NORMAL RANGES Age WBC RBC HGB HCT [...] HCT IS 5% LESS SOURCE FOR DATA: 3KeyIt 1800 OPERATION MANUAL( AUTOMATED BLOOD COUNTS AND [...] DESIRABLE: <130 MG/DL <110 MG/DL BORDERLINE-HIGH RISK: 130- 159 MG/DL 110-129 MG/DL HIGH RISK: >160 MG/DL >130 MG/DL *CHILDREN AND ADOLESCENTS REPRESENTS INDIVIDUALA AGED 2-19 YEARS EXCLUSIVE. Osmolality-Calculated 276.4 CALC MED [facility] ([facility] NORMAL RANGES Age WBC RBC HGB HCT [...] HCT IS 5% LESS SOURCE FOR DATA: 3KeyIt 1800 OPERATION MANUAL( AUTOMATED BLOOD COUNTS AND [...] DESIRABLE: <130 MG/DL <110 MG/DL BORDERLINE-HIGH RISK: 130- 159 MG/DL 110-129 MG/DL HIGH RISK: >160 MG/DL >130 MG/DL *CHILDREN AND ADOLESCENTS REPRESENTS INDIVIDUALA AGED 2-19 YEARS EXCLUSIVE. Anion Gap 12 mmol/L [facility] NORMAL RANGES Age WBC RBC HGB HCT [...] HCT IS 5% LESS SOURCE FOR DATA: BevyUp DYN 1800 OPERATION MANUAL( AUTOMATED BLOOD COUNTS AND [...] DESIRABLE: <130 MG/DL <110 MG/DL BORDERLINE-HIGH RISK: 130- 159 MG/DL 110-129 MG/DL HIGH RISK: >160 MG/DL >130 MG/DL *CHILDREN AND ADOLESCENTS REPRESENTS INDIVIDUALA AGED 2-19 YEARS EXCLUSIVE. eGFR 63 # [facility] ( [facility] NORMAL RANGES Age WBC RBC HGB HCT [...] HCT IS 5% LESS SOURCE FOR DATA: 3KeyIt 1800 OPERATION MANUAL( AUTOMATED BLOOD COUNTS AND [...] DESIRABLE: <130 MG/DL <110 MG/DL BORDERLINE-HIGH RISK: 130- 159 MG/DL 110-129 MG/DL HIGH RISK: >160 MG/DL >130 MG/DL *CHILDREN AND ADOLESCENTS REPRESENTS INDIVIDUALA AGED 2-19 YEARS EXCLUSIVE. eGFR Non-Afr. Iranian 55 # [facility] ([facility] NORMAL RANGES Age WBC RBC HGB HCT [...] HCT IS 5% LESS SOURCE FOR DATA: 3KeyIt 1800 OPERATION MANUAL( AUTOMATED BLOOD COUNTS AND [...] DESIRABLE: <130 MG/DL <110 MG/DL BORDERLINE-HIGH RISK: 130- 159 MG/DL 110-129 MG/DL HIGH RISK: >160 MG/DL >130 MG/DL *CHILDREN AND ADOLESCENTS REPRESENTS INDIVIDUALA AGED 2-19 YEARS EXCLUSIVE. ID Date Data Source [id number] 11/09/2020 08:57:00 AM EDT [facility] ([facility] Name Value Range Interpretation Code Description Data Catherine rce(s) Supporting Document(s) RBC 5.27 10E6/uL 08.10-10.20 [facility] ([facility] NORMAL RANGES Age WBC RBC HGB HCT [...] HCT IS 5% LESS SOURCE FOR DATA: 3KeyIt 1800 OPERATION MANUAL( AUTOMATED BLOOD COUNTS AND [...] DESIRABLE: <130 MG/DL <110 MG/DL BORDERLINE-HIGH RISK: 130- 159 MG/DL 110-129 MG/DL HIGH RISK: >160 MG/DL >130 MG/DL *CHILDREN AND ADOLESCENTS REPRESENTS INDIVIDUALA AGED 2-19 YEARS EXCLUSIVE. WBC 7.3 10E3/uL 4.1-10.9 [facility] ([facility] NORMAL RANGES Age WBC RBC HGB HCT [...] HCT IS 5% LESS SOURCE FOR DATA: 3KeyIt 1800 OPERATION MANUAL( AUTOMATED BLOOD COUNTS AND [...] DESIRABLE: <130 MG/DL <110 MG/DL BORDERLINE-HIGH RISK: 130- 159 MG/DL 110-129 MG/DL HIGH RISK: >160 MG/DL >130 MG/DL *CHILDREN AND ADOLESCENTS REPRESENTS INDIVIDUALA AGED 2-19 YEARS EXCLUSIVE. HGB 14.7 g/dL 12.0-18.0 [facility] NORMAL RANGES Age WBC RBC HGB HCT [...] HCT IS 5% LESS SOURCE FOR DATA: 3KeyIt 1800 OPERATION MANUAL( AUTOMATED BLOOD COUNTS AND [...] DESIRABLE: <130 MG/DL <110 MG/DL BORDERLINE-HIGH RISK: 130- 159 MG/DL 110-129 MG/DL HIGH RISK: >160 MG/DL >130 MG/DL *CHILDREN AND ADOLESCENTS REPRESENTS INDIVIDUALA AGED 2-19 YEARS EXCLUSIVE. HCT 42.8 % 37.0-51.0 [facility] ([facility] NORMAL RANGES Age WBC RBC HGB HCT [...] HCT IS 5% LESS SOURCE FOR DATA: BevyUp DYN 1800 OPERATION MANUAL( AUTOMATED BLOOD COUNTS AND [...] DESIRABLE: <130 MG/DL <110 MG/DL BORDERLINE-HIGH RISK: 130- 159 MG/DL 110-129 MG/DL HIGH RISK: >160 MG/DL >130 MG/DL *CHILDREN AND ADOLESCENTS REPRESENTS INDIVIDUALA AGED 2-19 YEARS EXCLUSIVE. MCH 27.9 pg 26.0-32.0 [facility] ([facility] NORMAL RANGES Age WBC RBC HGB HCT [...] HCT IS 5% LESS SOURCE FOR DATA: 3KeyIt 1800 OPERATION MANUAL( AUTOMATED BLOOD COUNTS AND [...] DESIRABLE: <130 MG/DL <110 MG/DL BORDERLINE-HIGH RISK: 130- 159 MG/DL 110-129 MG/DL HIGH RISK: >160 MG/DL >130 MG/DL *CHILDREN AND ADOLESCENTS REPRESENTS INDIVIDUALA AGED 2-19 YEARS EXCLUSIVE. MCV 81.2 fL 80.0-97.0 [facility] ([facility] NORMAL RANGES Age WBC RBC HGB HCT [...] HCT IS 5% LESS SOURCE FOR DATA: 3KeyIt 1800 OPERATION MANUAL( AUTOMATED BLOOD COUNTS AND [...] DESIRABLE: <130 MG/DL <110 MG/DL BORDERLINE-HIGH RISK: 130- 159 MG/DL 110-129 MG/DL HIGH RISK: >160 MG/DL >130 MG/DL *CHILDREN AND ADOLESCENTS REPRESENTS INDIVIDUALA AGED 2-19 YEARS EXCLUSIVE. MCHC 34.3 g/dL 31.0-36.0 [facility] ([facility] NORMAL RANGES Age WBC RBC HGB HCT [...] HCT IS 5% LESS SOURCE FOR DATA: 3KeyIt 1800 OPERATION MANUAL( AUTOMATED BLOOD COUNTS AND [...] DESIRABLE: <130 MG/DL <110 MG/DL BORDERLINE-HIGH RISK: 130- 159 MG/DL 110-129 MG/DL HIGH RISK: >160 MG/DL >130 MG/DL *CHILDREN AND ADOLESCENTS REPRESENTS INDIVIDUALA AGED 2-19 YEARS EXCLUSIVE. PLT 121 10E3/uL 140-440 Below low normal [facility] ([facility] NORMAL RANGES Age WBC RBC HGB HCT [...] HCT IS 5% LESS SOURCE FOR DATA: 3KeyIt 1800 OPERATION MANUAL( AUTOMATED BLOOD COUNTS AND [...] DESIRABLE: <130 MG/DL <110 MG/DL BORDERLINE-HIGH RISK: 130- 159 MG/DL 110-129 MG/DL HIGH RISK: >160 MG/DL >130 MG/DL *CHILDREN AND ADOLESCENTS REPRESENTS INDIVIDUALA AGED 2-19 YEARS EXCLUSIVE. Lym% 6.8 % 10.0-58.5 Below low normal [facility] ( [facility] NORMAL RANGES Age WBC RBC HGB HCT [...] HCT IS 5% LESS SOURCE FOR DATA: BevyUp DYN 1800 OPERATION MANUAL( AUTOMATED BLOOD COUNTS AND [...] DESIRABLE: <130 MG/DL <110 MG/DL BORDERLINE-HIGH RISK: 130- 159 MG/DL 110-129 MG/DL HIGH RISK: >160 MG/DL >130 MG/DL *CHILDREN AND ADOLESCENTS REPRESENTS INDIVIDUALA AGED 2-19 YEARS EXCLUSIVE. RDW-CV 13.4 % 11.5-14.5 [facility] ([facility] NORMAL RANGES Age WBC RBC HGB HCT [...] HCT IS 5% LESS SOURCE FOR DATA: 3KeyIt 1800 OPERATION MANUAL( AUTOMATED BLOOD COUNTS AND [...] DESIRABLE: <130 MG/DL <110 MG/DL BORDERLINE-HIGH RISK: 130- 159 MG/DL 110-129 MG/DL HIGH RISK: >160 MG/DL >130 MG/DL *CHILDREN AND ADOLESCENTS REPRESENTS INDIVIDUALA AGED 2-19 YEARS EXCLUSIVE. Neut% 84.8 % 37.0-92.0 [facility] ([facility] NORMAL RANGES Age WBC RBC HGB HCT [...] HCT IS 5% LESS SOURCE FOR DATA: 3KeyIt 1800 OPERATION MANUAL( AUTOMATED BLOOD COUNTS AND [...] DESIRABLE: <130 MG/DL <110 MG/DL BORDERLINE-HIGH RISK: 130- 159 MG/DL 110-129 MG/DL HIGH RISK: >160 MG/DL >130 MG/DL *CHILDREN AND ADOLESCENTS REPRESENTS INDIVIDUALA AGED 2-19 YEARS EXCLUSIVE. MXD% 8.4 % 0.1-24.0 [facility] ([facility] NORMAL RANGES Age WBC RBC HGB HCT [...] HCT IS 5% LESS SOURCE FOR DATA: 3KeyIt 1800 OPERATION MANUAL( AUTOMATED BLOOD COUNTS AND [...] DESIRABLE: <130 MG/DL <110 MG/DL BORDERLINE-HIGH RISK: 130- 159 MG/DL 110-129 MG/DL HIGH RISK: >160 MG/DL >130 MG/DL *CHILDREN AND ADOLESCENTS REPRESENTS INDIVIDUALA AGED 2-19 YEARS EXCLUSIVE. Lym# 0.5 10E3/uL 0.6-4.1 Below low normal [facility] ([facility] NORMAL RANGES Age WBC RBC HGB HCT [...] HCT IS 5% LESS SOURCE FOR DATA: 3KeyIt 1800 OPERATION MANUAL( AUTOMATED BLOOD COUNTS AND [...] DESIRABLE: <130 MG/DL <110 MG/DL BORDERLINE-HIGH RISK: 130- 159 MG/DL 110-129 MG/DL HIGH RISK: >160 MG/DL >130 MG/DL *CHILDREN AND ADOLESCENTS REPRESENTS INDIVIDUALA AGED 2-19 YEARS EXCLUSIVE. Neut# 6.2 % 2.0-7.8 [facility] NORMAL RANGES Age WBC RBC HGB HCT [...] HCT IS 5% LESS SOURCE FOR DATA: 3KeyIt 1800 OPERATION MANUAL( AUTOMATED BLOOD COUNTS AND [...] DESIRABLE: <130 MG/DL <110 MG/DL BORDERLINE-HIGH RISK: 130- 159 MG/DL 110-129 MG/DL HIGH RISK: >160 MG/DL >130 MG/DL *CHILDREN AND ADOLESCENTS REPRESENTS INDIVIDUALA AGED 2-19 YEARS EXCLUSIVE. MPV 10.2 fL 9.0-13.0 [facility] ([facility] NORMAL RANGES Age WBC RBC HGB HCT [...] HCT IS 5% LESS SOURCE FOR DATA: 3KeyIt 1800 OPERATION MANUAL( AUTOMATED BLOOD COUNTS AND [...] DESIRABLE: <130 MG/DL <110 MG/DL BORDERLINE-HIGH RISK: 130- 159 MG/DL 110-129 MG/DL HIGH RISK: >160 MG/DL >130 MG/DL *CHILDREN AND ADOLESCENTS REPRESENTS INDIVIDUALA AGED 2-19 YEARS EXCLUSIVE. MXD# 0.6 10E3/uL 0.0-1.8 [facility] ([facility] NORMAL RANGES Age WBC RBC HGB HCT [...] HCT IS 5% LESS SOURCE FOR DATA: 3KeyIt 1800 OPERATION MANUAL( AUTOMATED BLOOD COUNTS AND [...] DESIRABLE: <130 MG/DL <110 MG/DL BORDERLINE-HIGH RISK: 130- 159 MG/DL 110-129 MG/DL HIGH RISK: >160 MG/DL >130 MG/DL *CHILDREN AND ADOLESCENTS REPRESENTS INDIVIDUALA AGED 2-19 YEARS EXCLUSIVE. ID Date Data Source [id number] 11/09/2020 08:57:00 AM EDT [facility] ([facility] Name Value Range Interpretation Code Description Data Catherine rce(s) Supporting Document(s) Hemoglobin A1c/Hemoglobin.total in Blood 6.8 % 4.50-6.20 Above high normal [facility] ([facility] ID Date Data Source [id number] 07/22/2020 09:03:00 AM EDT [facility] ([facility]) Name Value Range Interpretation Code Description Data Catherine rce(s) Supporting Document(s) Glucose [Mass/volume] in Serum or Plasma 173 [facility] ([facility]) Hemoglobin A1c/Hemoglobin.total in Blood 6.5 [facility] ([facility]) ID Date Data Source [id number] 04/30/2020 09:11:00 AM EST [facility] ([facility] Name Value Range Interpretation Code Description Data Catherine rce(s) Supporting Document(s) Hemoglobin A1c/Hemoglobin.total in Blood 6.5 % 4.50-6.20 Above high normal [facility] ([facility] ID Date Data Source [id number] 04/30/2020 09:10:00 AM EST [facility] ([facility] Name Value Range Interpretation Code Description Data Catherine rce(s) Supporting Document(s) Chol 129 mg/dL 0-200 [facility] ([facility] CHRONIC KIDNEY DISEASE STAGING PER NKF: MALE [...] DESIRABLE: <130 MG/DL <110 MG/DL BORDERLINE-HIGH RISK: 130- 159 MG/DL 110-129 MG/DL HIGH RISK: >160 MG/DL >130 MG/DL *CHILDREN AND ADOLESCENTS REPRESENTS INDIVIDUALA AGED 2-19 YEARS EXCLUSIVE. Cholesterol in HDL [Mass/volume] in Serum or Plasma 32 mg/dL 45-65 Below low normal [facility] ([facility] ) CHRONIC KIDNEY DISEASE STAGING PER NKF: MALE [...] DESIRABLE: <130 MG/DL <110 MG/DL BORDERLINE-HIGH RISK: 130- 159 MG/DL 110-129 MG/DL HIGH RISK: >160 MG/DL >130 MG/DL *CHILDREN AND ADOLESCENTS REPRESENTS INDIVIDUALA AGED 2-19 YEARS EXCLUSIVE. Trig 170 mg/dL 40-200 [facility] ([facility] CHRONIC KIDNEY DISEASE STAGING PER NKF: MALE [...] DESIRABLE: <130 MG/DL <110 MG/DL BORDERLINE-HIGH RISK: 130- 159 MG/DL 110-129 MG/DL HIGH RISK: >160 MG/DL >130 MG/DL *CHILDREN AND ADOLESCENTS REPRESENTS INDIVIDUALA AGED 2-19 YEARS EXCLUSIVE. LDL_C 63 Calc 75-129 Below low normal [facility] ( [facility] CHRONIC KIDNEY DISEASE STAGING PER NKF: MALE [...] DESIRABLE: <130 MG/DL <110 MG/DL BORDERLINE-HIGH RISK: 130- 159 MG/DL 110-129 MG/DL HIGH RISK: >160 MG/DL >130 MG/DL *CHILDREN AND ADOLESCENTS REPRESENTS INDIVIDUALA AGED 2-19 YEARS EXCLUSIVE. Cho/HDL Ratio 4.0 CALC [facility] ([facility] CHRONIC KIDNEY DISEASE STAGING PER NKF: MALE [...] DESIRABLE: <130 MG/DL <110 MG/DL BORDERLINE-HIGH RISK: 130- 159 MG/DL 110-129 MG/DL HIGH RISK: >160 MG/DL >130 MG/DL *CHILDREN AND ADOLESCENTS REPRESENTS INDIVIDUALA AGED 2-19 YEARS EXCLUSIVE. ID Date Data Source [id number] 04/30/2020 09:10:00 AM EST [facility] ([facility] Name Value Range Interpretation Code Description Data Catherine rce(s) Supporting Document(s) Glu 175 mg/dL 70-110 Above high normal [facility] ([facility] CHRONIC KIDNEY DISEASE STAGING PER NKF: MALE [...] DESIRABLE: <130 MG/DL <110 MG/DL BORDERLINE-HIGH RISK: 130- 159 MG/DL 110-129 MG/DL HIGH RISK: >160 MG/DL >130 MG/DL *CHILDREN AND ADOLESCENTS REPRESENTS INDIVIDUALA AGED 2-19 YEARS EXCLUSIVE. Creat 1.2 mg/dL 0.5-1.0 Above high normal [facility] ([facility] CHRONIC KIDNEY DISEASE STAGING PER NKF: MALE [...] DESIRABLE: <130 MG/DL <110 MG/DL BORDERLINE-HIGH RISK: 130- 159 MG/DL 110-129 MG/DL HIGH RISK: >160 MG/DL >130 MG/DL *CHILDREN AND ADOLESCENTS REPRESENTS INDIVIDUALA AGED 2-19 YEARS EXCLUSIVE. BUN 25 mg/dL 8-23 Above high normal [facility] ([facility] CHRONIC KIDNEY DISEASE STAGING PER NKF: MALE [...] DESIRABLE: <130 MG/DL <110 MG/DL BORDERLINE-HIGH RISK: 130- 159 MG/DL 110-129 MG/DL HIGH RISK: >160 MG/DL >130 MG/DL *CHILDREN AND ADOLESCENTS REPRESENTS INDIVIDUALA AGED 2-19 YEARS EXCLUSIVE. BUN/Creatinine Ratio 20.6 CALC [facility] ([facility] CHRONIC KIDNEY DISEASE STAGING PER NKF: MALE [...] DESIRABLE: <130 MG/DL <110 MG/DL BORDERLINE-HIGH RISK: 130- 159 MG/DL 110-129 MG/DL HIGH RISK: >160 MG/DL >130 MG/DL *CHILDREN AND ADOLESCENTS REPRESENTS INDIVIDUALA AGED 2-19 YEARS EXCLUSIVE. Na 139 mmol/L 136-145 [facility] CHRONIC KIDNEY DISEASE STAGING PER NKF: MALE [...] DESIRABLE: <130 MG/DL <110 MG/DL BORDERLINE-HIGH RISK: 130- 159 MG/DL 110-129 MG/DL HIGH RISK: >160 MG/DL >130 MG/DL *CHILDREN AND ADOLESCENTS REPRESENTS INDIVIDUALA AGED 2-19 YEARS EXCLUSIVE. K 4.9 mmol/L 3.5-5.1 [facility] ([facility] CHRONIC KIDNEY DISEASE STAGING PER NKF: MALE [...] DESIRABLE: <130 MG/DL <110 MG/DL BORDERLINE-HIGH RISK: 130- 159 MG/DL 110-129 MG/DL HIGH RISK: >160 MG/DL >130 MG/DL *CHILDREN AND ADOLESCENTS REPRESENTS INDIVIDUALA AGED 2-19 YEARS EXCLUSIVE. Co2 24.4 mmol/L 22.0-29.0 [facility] ([facility] CHRONIC KIDNEY DISEASE STAGING PER NKF: MALE [...] DESIRABLE: <130 MG/DL <110 MG/DL BORDERLINE-HIGH RISK: 130- 159 MG/DL 110-129 MG/DL HIGH RISK: >160 MG/DL >130 MG/DL *CHILDREN AND ADOLESCENTS REPRESENTS INDIVIDUALA AGED 2-19 YEARS EXCLUSIVE. CL 104.5 mmol/L 98.0-107.0 [facility] CHRONIC KIDNEY DISEASE STAGING PER NKF: MALE [...] DESIRABLE: <130 MG/DL <110 MG/DL BORDERLINE-HIGH RISK: 130- 159 MG/DL 110-129 MG/DL HIGH RISK: >160 MG/DL >130 MG/DL *CHILDREN AND ADOLESCENTS REPRESENTS INDIVIDUALA AGED 2-19 YEARS EXCLUSIVE. CA 9.1 mg/dL 8.6-10.2 [facility] ([facility] CHRONIC KIDNEY DISEASE STAGING PER NKF: MALE [...] DESIRABLE: <130 MG/DL <110 MG/DL BORDERLINE-HIGH RISK: 130- 159 MG/DL 110-129 MG/DL HIGH RISK: >160 MG/DL >130 MG/DL *CHILDREN AND ADOLESCENTS REPRESENTS INDIVIDUALA AGED 2-19 YEARS EXCLUSIVE. TP 6.4 g/dL 6.6-8.7 Below low normal [facility] ( [facility] CHRONIC KIDNEY DISEASE STAGING PER NKF: MALE [...] DESIRABLE: <130 MG/DL <110 MG/DL BORDERLINE-HIGH RISK: 130- 159 MG/DL 110-129 MG/DL HIGH RISK: >160 MG/DL >130 MG/DL *CHILDREN AND ADOLESCENTS REPRESENTS INDIVIDUALA AGED 2-19 YEARS EXCLUSIVE. A/G Ratio 2.3 CALC [facility] ([facility] CHRONIC KIDNEY DISEASE STAGING PER NKF: MALE [...] DESIRABLE: <130 MG/DL <110 MG/DL BORDERLINE-HIGH RISK: 130- 159 MG/DL 110-129 MG/DL HIGH RISK: >160 MG/DL >130 MG/DL *CHILDREN AND ADOLESCENTS REPRESENTS INDIVIDUALA AGED 2-19 YEARS EXCLUSIVE. Alb 4.4 g/dL 3.4-4.8 [facility] ([facility] CHRONIC KIDNEY DISEASE STAGING PER NKF: MALE [...] DESIRABLE: <130 MG/DL <110 MG/DL BORDERLINE-HIGH RISK: 130- 159 MG/DL 110-129 MG/DL HIGH RISK: >160 MG/DL >130 MG/DL *CHILDREN AND ADOLESCENTS REPRESENTS INDIVIDUALA AGED 2-19 YEARS EXCLUSIVE. Alp 80.8 U/L 35-129 [facility] ([facility] CHRONIC KIDNEY DISEASE STAGING PER NKF: MALE [...] DESIRABLE: <130 MG/DL <110 MG/DL BORDERLINE-HIGH RISK: 130- 159 MG/DL 110-129 MG/DL HIGH RISK: >160 MG/DL >130 MG/DL *CHILDREN AND ADOLESCENTS REPRESENTS INDIVIDUALA AGED 2-19 YEARS EXCLUSIVE. Globulin 1.9 CALC [facility] ([facility] CHRONIC KIDNEY DISEASE STAGING PER NKF: MALE [...] DESIRABLE: <130 MG/DL <110 MG/DL BORDERLINE-HIGH RISK: 130- 159 MG/DL 110-129 MG/DL HIGH RISK: >160 MG/DL >130 MG/DL *CHILDREN AND ADOLESCENTS REPRESENTS INDIVIDUALA AGED 2-19 YEARS EXCLUSIVE. Alt (SGPT) 13 U/L 0-41 [facility] ([facility] CHRONIC KIDNEY DISEASE STAGING PER NKF: MALE [...] DESIRABLE: <130 MG/DL <110 MG/DL BORDERLINE-HIGH RISK: 130- 159 MG/DL 110-129 MG/DL HIGH RISK: >160 MG/DL >130 MG/DL *CHILDREN AND ADOLESCENTS REPRESENTS INDIVIDUALA AGED 2-19 YEARS EXCLUSIVE. Tbili 0.36 mg/dL 0.0-1.2 [facility] ([facility] CHRONIC KIDNEY DISEASE STAGING PER NKF: MALE [...] DESIRABLE: <130 MG/DL <110 MG/DL BORDERLINE-HIGH RISK: 130- 159 MG/DL 110-129 MG/DL HIGH RISK: >160 MG/DL >130 MG/DL *CHILDREN AND ADOLESCENTS REPRESENTS INDIVIDUALA AGED 2-19 YEARS EXCLUSIVE. Ast (Sgot) 17 U/L 0-40 [facility] ([facility] CHRONIC KIDNEY DISEASE STAGING PER NKF: MALE [...] DESIRABLE: <130 MG/DL <110 MG/DL BORDERLINE-HIGH RISK: 130- 159 MG/DL 110-129 MG/DL HIGH RISK: >160 MG/DL >130 MG/DL *CHILDREN AND ADOLESCENTS REPRESENTS INDIVIDUALA AGED 2-19 YEARS EXCLUSIVE. Osmolality-Calculated 286.3 CALC [facility] ([facility] CHRONIC KIDNEY DISEASE STAGING PER NKF: MALE [...] DESIRABLE: <130 MG/DL <110 MG/DL BORDERLINE-HIGH RISK: 130- 159 MG/DL 110-129 MG/DL HIGH RISK: >160 MG/DL >130 MG/DL *CHILDREN AND ADOLESCENTS REPRESENTS INDIVIDUALA AGED 2-19 YEARS EXCLUSIVE. Anion Gap 15 mmol/L [facility] ([facility] CHRONIC KIDNEY DISEASE STAGING PER NKF: MALE [...] DESIRABLE: <130 MG/DL <110 MG/DL BORDERLINE-HIGH RISK: 130- 159 MG/DL 110-129 MG/DL HIGH RISK: >160 MG/DL >130 MG/DL *CHILDREN AND ADOLESCENTS REPRESENTS INDIVIDUALA AGED 2-19 YEARS EXCLUSIVE. eGFR 57 # [facility] ( [facility] CHRONIC KIDNEY DISEASE STAGING PER NKF: MALE [...] DESIRABLE: <130 MG/DL <110 MG/DL BORDERLINE-HIGH RISK: 130- 159 MG/DL 110-129 MG/DL HIGH RISK: >160 MG/DL >130 MG/DL *CHILDREN AND ADOLESCENTS REPRESENTS INDIVIDUALA AGED 2-19 YEARS EXCLUSIVE. eGFR Non-Afr. Iranian 49 # [facility] ([facility] CHRONIC KIDNEY DISEASE STAGING PER NKF: MALE [...] DESIRABLE: <130 MG/DL <110 MG/DL BORDERLINE-HIGH RISK: 130- 159 MG/DL 110-129 MG/DL HIGH RISK: >160 MG/DL >130 MG/DL *CHILDREN AND ADOLESCENTS REPRESENTS INDIVIDUALA AGED 2-19 YEARS EXCLUSIVE. Procedure Social History Code Duration Value Status Description Data Source(s ) Smoking 01/20/2021 12:00:00 AM EDT Never Smoked Cigarettes com pleted Never Smoked Cigarettes [facility] ([facility]) Vital Signs ID Date Data Source UNK Name Value Range Interpretation Code Description Data Source(s) Body mass index (BMI) [Ratio] 37.6 kg/m2 37.6 k g/m2 [facility] ([facility]) Systolic blood pressure 142 mm[Hg] 142 mm[Hg] [facility] ([facility]) Diastolic blood pressure 80 mm[Hg] 80 mm[Hg] [facility] ([facility]) Heart rate 72 /min 72 /min [facility] ([facility]) Body height 63.9 [in_i] 63.9 [in_i] [facility] ([facility]) 5'3.90" Body weight 218.12 [lb_av] 218.12 [lb_av] [facility] ([facility]) Body mass index (BMI) [Ratio] 37.6 kg/m2 37.6 k g/m2 [facility] ([facility]) Body surface area Derived from formula 2.03 m2 2.03 m2 [facility] ([facility] ) Systolic blood pressure 136 mm[Hg] 136 mm[Hg] [facility] ([facility]) Diastolic blood pressure 84 mm[Hg] 84 mm[Hg] [facility] ([facility]) Body height 64 [in_i] 64 [in_i] [facility] ([facility]) 5'4" Body weight 219.00 [lb_av] 219.00 [lb_av] [facility] ([facility]) [place] body weight 120 [lb_av] 120 [lb_av] [facility] ([facility]) Body weight 99.338 kg 99.338 kg [facility] ([facility]) Systolic blood pressure 120 mm[Hg] 120 mm[Hg] [facility] ([facility] Diastolic blood pressure 76 mm[Hg] 76 mm[Hg] [facility] ([facility] Body temperature 97.3 [degF] 97.3 [degF] [facility] ([facility] Heart rate 78 /min 78 /min [facility] Respiratory rate 16 /min 16 /min [facility] ( [facility] Body height 64 [in_i] 64 [in_i] [facility] ([facility] 5'4" Body weight 220.00 [lb_av] 220.00 [lb_av] [facility] ([facility] [place] body weight 120 [lb_av] 120 [lb_av] [facility] ([facility] Body mass index (BMI) [Ratio] 37.8 kg/m2 37.8 k g/m2 [facility] ([facility] Oxygen saturation in Arterial blood by Pulse oximetry 98 % 98 % [facility] ([facility] Diastolic blood pressure 72 mm[Hg] 72 mm[Hg] MEDENT ([facility] Oxygen saturation in Arterial blood by Pulse oximetry 98 % 98 % MEDENT ([facility] Body height 64 [in_i] 64 [in_i] MEDENT ([facility] 5'4" Respiratory rate 16 /min 16 /min MEDENT ( [facility] Body mass index (BMI) [Ratio] 37.6 kg/m2 37.6 k g/m2 MEDENT ([facility] Body weight 219.00 [lb_av] 219.00 [lb_av] MEDEN T ([facility] [place] body weight 120 [lb_av] 120 [lb_av] MEDEN T ([facility] Body temperature 97.2 [degF] 97.2 [degF] MEDENT ([facility] Heart rate 104 /min 104 /min MEDENT ([facility] Systolic blood pressure 128 mm[Hg] 128 mm[Hg] M EDENT ([facility] Systolic blood pressure 140 mm[Hg] 140 mm[Hg] M EDENT ([facility]) Diastolic blood pressure 78 mm[Hg] 78 mm[Hg] MEDENT ([facility]) Body height 63.9 [in_i] 63.9 [in_i] MEDENT ([facility]) 5'3.90" Body temperature 95.9 [degF] 95.9 [degF] MEDENT ([facility] Body weight 218.00 [lb_av] 218.00 [lb_av] MEDEN T ([facility] Heart rate 84 /min 84 /min MEDENT ([facility] Body mass index (BMI) [Ratio] 37.5 kg/m2 37.5 k g/m2 MEDENT ([facility] Oxygen saturation in Arterial blood by Pulse oximetry 98 % 98 % MEDENT ([facility]) Heart rate 82 /min 82 /min MEDENT ([facility] Systolic blood pressure 126 mm[Hg] 126 mm[Hg] M EDENT ([facility] Diastolic blood pressure 64 mm[Hg] 64 mm[Hg] MEDENT ([facility] Body mass index (BMI) [Ratio] 37.2 kg/m2 37.2 k g/m2 MEDENT ([facility] Body weight 217.00 [lb_av] 217.00 [lb_av] MEDEN T ([facility] [place] body weight 120 [lb_av] 120 [lb_av] MEDEN T ([facility] Body temperature 97.8 [degF] 97.8 [degF] LAURENENT ([facility] Respiratory rate 16 /min 16 /min TATIANA ( [facility], [facility] Body height 64 [in_i] 64 [in_i] [facility] ([facility] 5'4" Oxygen saturation in Arterial blood by Pulse oximetry 98 % 98 % [place] ([facility]
[2021-04-01] MEDS ORDERED: propofoL 200 MG/20 ML VIAL As Ordered ONE (08:45)
[2021-04-01] MEDS ORDERED: LIDOCAINE 2% 100MG/5ML SDV (FOR ANES.) As Ordered ONE (08:45)
--- NOTE | 2021-04-01 09:37 | ROOR ---
Patient Name: Ayana El Procedure Date: 04/01/2021 8:58 AM Date of : 1960 Age: 60 Room: [facility] Gender: Female Note Status: Finalized Procedure: Colonoscopy Indications: High risk colon cancer surveillance: Personal history of colonic polyps Providers: Cesario English MD Referring MD: PHILLIP NEWMAN MD Requesting Provider: Medicines: Monitored Anesthesia Care Complications: No immediate complications. Procedure: Pre-Anesthesia Assessment: - The heart rate, respiratory rate, oxygen saturations, blood pressure, adequacy of pulmonary ventilation, and response to care were monitored throughout the procedure. The Colonoscope was introduced through the anus and advanced to the terminal ileum, with identification of the appendiceal orifice and IC valve. The colonoscopy was performed without difficulty. The patient tolerated the procedure well. The quality of the bowel preparation was good. Findings: The perianal and digital rectal examinations were normal. A 10 mm polyp was found in the distal transverse colon. The polyp was flat. The polyp was removed with a piecemeal technique using a cold snare. Resection and retrieval were complete. A 5 mm polyp was found in the mid sigmoid colon. The polyp was sessile. The polyp was removed with a cold snare. Resection and retrieval were complete. There was a small lipoma, 15 mm in diameter, in the mid descending colon. Small Internal Hemorrhoids. The exam was otherwise normal throughout the examined colon. Impression: - One 10 mm polyp in the distal transverse colon, removed piecemeal using a cold snare. Resected and retrieved. - One 5 mm polyp in the mid sigmoid colon, removed with a cold snare. Resected and retrieved. - Small lipoma in the mid descending colon. - Small Internal Hemorrhoids. Recommendation: - Repeat colonoscopy date to be determined after pending pathology results are reviewed for surveillance based on pathology results. - Telephone endoscopist for pathology results in 2 weeks. 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 All rights reserved. The codes documented in this report are preliminary and upon instructional media services technician review may be revised to meet current compliance requirements. Cesario English MD Cesario English MD 04/01/2021 9:36:54 AM Electronically signed by Cesario English MD Number of Addenda: 0 Note Initiated On: 04/01/2021 8:58 AM Estimated Blood Loss: Estimated blood loss: none.
[2021-04-01 09:53] VITALS: BP 120/72
== END 2021-04-01 09:57 | disposition home or self-care (01) ==
LOC: M OPP 07:41
PROVIDERS: ATTEND Internal Medicine Gastroenterology
DX: Z12.11 Encounter for screening for malignant neoplasm of colon (principal); Z86.010 Personal history of colon polyps; Z80.0 Family history of malignant neoplasm of digestive organs; D17.5 Benign lipomatous neoplasm of intra-abdominal organs; K63.5 Polyp of colon; K64.8 Other hemorrhoids; Z79.82 Long term (current) use of aspirin; Z79.84 Long term (current) use of oral hypoglycemic drugs; Z79.899 Other long term (current) drug therapy; Z88.1 Allergy status to other antibiotic agents; Z88.2 Allergy status to sulfonamides; Z91.048 Other nonmedicinal substance allergy status

== ENCOUNTER → 2024-05-16 | Outpatient (REF) | payer OTHER ==
[~2024-05-16] MED LIST changes: +LOSA100T46 PO; -LOSA100T50 PO; -NS 1,000 ML IV ONE; -ROSU20TA5; +ROSU20TA86
[2024-05-16 14:29] LABS: HEMOGLOBIN A1c 6.3 % (4.0-6.0)
== END ==
LOC: M LABDRWAD 13:22
PROVIDERS: ATTEND Nurse Practitioner Family
DX: E11.65 Type 2 diabetes mellitus with hyperglycemia (principal)

== ENCOUNTER → 2025-03-16 | Outpatient (CLI) | payer OTHER ==
[~2025-03-16] MED LIST changes: -BYDU2INJ7; +EXEN2AUT
[2025-03-16 15:02] LABS: ALT/SGPT 21 U/L (7.0-40); AST/SGOT 22 U/L (<34)
[2025-03-16 15:03] LABS: IRON (FE) 92 UG/DL (50-170); PERCENT SATURATION 21.6 % (13.2-45.0)
[2025-03-16 15:04] LABS: INR 0.97
[2025-03-16 15:43] LABS: HEPATITIS C VIRUS ABY INDEX < 0.02 INDEX (<0.8)
[2025-03-18 23:32] LABS: LIVER-KIDNEY MICROSOMAL ABY <= 20.0 U (<=20.0)
[2025-03-19 14:58] LABS: ANTI-SMOOTH MUSCLE ANTIBODY < 20 U (<20)
== END ==
LOC: M LAB 13:31
PROVIDERS: ATTEND Internal Medicine Gastroenterology
DX: K74.02 Hepatic fibrosis, advanced fibrosis (principal)

== ENCOUNTER → 2025-03-18 | Outpatient (CLI) | payer OTHER | LOC: M RAD 07:33 | PROVIDERS: ATTEND Internal Medicine Gastroenterology | DX: K74.02 Hepatic fibrosis, advanced fibrosis (principal); R74.8 Abnormal levels of other serum enzymes ==